=== PATIENT | male | born 1970 | race Caucasian/White ===

== ENCOUNTER → 2020-11-02 09:52 | Outpatient (CLI) | payer OTHER, SELFPAY ==
[2020-11-02 10:20] LABS: COVID19 -Nasal RAPID Negative (Negative)
== END ==
PROVIDERS: Visit Provider Physician Assistant
DX: R19.7 Diarrhea, unspecified (principal); R50.9 Fever, unspecified; R51.9 Headache, unspecified
CPT/HCPCS: 87635

== ENCOUNTER 2020-11-02 10:36 | Emergency (ER) | payer OTHER, SELFPAY ==
[2020-11-02] VITALS (15 sets, daily range): BP systolic 133–142; BP diastolic 77–80; PULSE 70–94; RESP 16–18; TEMP 37.7–37.9; O2SAT 93–99; BMI 26.5
--- NOTE | 2020-11-02 10:39 | ED_ITS ---
HPI - Fever General Chief Complaint: Nausea/Vomiting/Diarrhea Stated Complaint: fever,shivering,headache,abdominal pain,diarrhea Time Seen by Provider: 11/02/20 10:38 Source: patient Mode of arrival: Ambulatory Limitations: no limitations History of Present Illness HPI Narrative: 50-year-old male nonsmoker with noncontributory medical history presents from the walk-in clinic for evaluation of fever, chills, crampy abdominal pain and frequent loose stools occasionally with blood for the past 2- 3 days. [place] was [place] and not prophylaxed against malaria. He has got a mild headache and some dizziness when he stands up. He states his abdominal pain intensifies until he passes stool a which point it briefly grooves. He denies any runny nose or sore throat. He denies chest pain or shortness of breath. MD complaint: fever and weakness Onset (ago): day(s) Temperature Source: subjective Context: recent travel Associated symptoms: chills, rigors, myalgias, headache, abdominal pain, nausea and diarrhea Relieving factors: nothing Exacerbating factors: nothing Treatments prior to arrival fever: none Related Data Previous Rx's Medication Instructions Recorded phenylephrine 0.25 %-cocoa butter 1 suppositor [place] BID #24 each 06/29/18 88.44 % rectal suppository azithromycin 500 mg PO DAILY 3 Days tab 11/02/20 hyoscyamine sulfate 0.125 mg PO BID-QID PRN #20 tab 11/02/20 Allergies Allergy/AdvReac Type Severity Reaction Status Date / Time No Known Drug Allergies Allergy Verified 11/02/20 10:48 Review of Systems Constitutional Constitutional: Reports body ache(s), Reports chills, Reports fatigue, Reports fever(s), Denies frequent falls, Denies lethargy and Denies weakness Eyes Eyes: Denies change in vision, Denies eye discharge, Denies irritation and Denies loss of vision ENT Ears, Nose, Mouth, and Throat: Denies change in voice, Denies dizziness, Denies neck pain, Denies sore throat and Denies throat swelling Cardiovascular Cardiovascular: Denies chest pain, Denies irregular heart rhythm, Denies lightheadedness, Denies palpitations, Denies dyspnea, Denies dyspnea on exertion and Denies orthopnea Respiratory Respiratory: Denies cough, Denies dyspnea, Denies dyspnea on exertion and Denies wheezing Gastrointestinal Gastrointestinal: Reports abdominal pain, Denies change in bowel habits, Reports diarrhea, Reports nausea and Denies vomiting Musculoskeletal Musculoskeletal: Denies neck pain and Denies numbness Integumentary/Breasts Skin/Breast: Denies pruritus, Denies erythema, Denies rash and Denies wounds Neurologic Neurologic: Denies behavioral changes, Denies confusion, Denies dizziness, Denies frequent falls, Denies loss of vision, Denies numbness and Denies weakness Psychiatric Psychiatric: Denies anxiety, Denies behavioral changes, Denies confusion, Denies depression, Denies homicidal ideation and Denies suicidal ideation Endocrine Endocrine: Reports fatigue, Denies flushing and Denies palpitations Hematologic/Lymphatic Hematologic/Lymphatic: Denies easy bruising Allergic/Immunologic Allergic/Immunologic: Denies urticaria, Denies throat swelling and Denies wheezing Patient History Social History Smoking Status: Never smoker alcohol intake: never substance use type: does not use Smoking Status: Never smoker Exam Narrative Exam Narrative: GENERAL: [50] year old patient appears stated age. Well- nourished, well-developed patient, in mild distress. HEAD: Atraumatic. Normocephalic. EYES: Pupils equal round and reactive. Extraocular motions intact. No scleral icterus. No injection or drainage. ENT: Nose without bleeding, purulent drainage. Throat without erythema, tonsillar hypertrophy or exudate. Airway patent. NECK: Trachea midline. Non tender CARDIOVASCULAR: Regular rate and rhythm without murmurs, gallops, or rubs. RESPIRATORY: Clear to auscultation. Breath sounds equal bilaterally. No wheezes, rales, or rhonchi. GASTROINTESTINAL: Abdomen soft, non-tender, nondistended. EXTREMITIES: No edema or joint tenderness. BACK: Nontender without deformity or crepitance. No flank tenderness. NEURO: AOx3. SKIN: No rash or erythema of visible areas Initial Vital Signs Initial Vital Signs: Vital Signs Temperature 100.3 F H 11/02/20 10:49 Pulse Rate 90 11/02/20 10:49 Respiratory Rate 18 11/02/20 10:49 Blood Pressure 141/79 H 11/02/20 10:49 Pulse Oximetry 98 11/02/20 10:49 Course Course Course Narrative: improved after fluids. Very reassuring labs. NO obvious infectious source in stool, however, given timing and international travel we elected to give azithro. Return precautions given. Questions answered to his apparent satisfaction. Orders Ordered: Discontinued Medications Azithromycin (Azithromycin 250 Mg Tablet) 500 mg PO NOW ONE Stop: 11/02/20 16:20 Last Admin: 11/02/20 16:28 Dose: 500 mg Documented by: ARIAS Lactated Ringer's (Lactated Ringers) 1,000 mls @ 1,000 mls/hr IV BOLUS ONE Stop: 11/02/20 11:56 Last Infusion: 11/02/20 13:29 Dose: 0 mls/hr Documented by: Admin: 11/02/20 11:29 Dose: 1,000 mls/hr Documented by: ARIAS Lactated Ringer's (Lactated Ringers) 1,000 mls @ 1,000 mls/hr IV BOLUS ONE Stop: 11/02/20 15:03 Last Infusion: 11/02/20 15:00 Dose: 0 mls/hr Documented by: Admin: 11/02/20 14:06 Dose: 1,000 mls/hr Documented by: ARIAS Lactated Ringer's (Lactated Ringers) 1,000 mls @ 1,000 mls/hr IV BOLUS ONE Stop: 11/02/20 15:06 Last Admin: 11/02/20 15:08 Dose: Not Given Documented by: ARIAS Ketorolac Tromethamine (Ketorolac 60 Mg/2 Ml Vial) 15 mg IV NOW ONE Stop: 11/02/20 15:27 Last Admin: 11/02/20 15:46 Dose: 15 mg Documented by: ARIAS Vital Signs Vital signs: Vital Signs - 8 hr 11/02/20 10:49 11/02/20 11:14 11/02/20 11:15 Temperature 100.3 F H Pulse Rate 90 88 85 Respiratory Rate 18 Blood Pressure 141/79 H 133/77 Pulse Oximetry 98 99 98 11/02/20 11:30 11/02/20 12:00 11/02/20 12:30 Temperature Pulse Rate 86 90 87 Respiratory Rate Blood Pressure 136/77 Pulse Oximetry 96 96 95 11/02/20 13:00 11/02/20 13:38 11/02/20 14:00 Temperature Pulse Rate 88 91 H 87 Respiratory Rate 16 Blood Pressure 135/77 Pulse Oximetry 97 98 96 11/02/20 14:30 11/02/20 14:46 11/02/20 15:00 Temperature Pulse Rate 86 70 87 Respiratory Rate 16 Blood Pressure 135/77 Pulse Oximetry 96 98 97 11/02/20 15:30 11/02/20 15:50 Temperature Pulse Rate 94 H 90 Respiratory Rate 16 Blood Pressure 142/80 H Pulse Oximetry 95 96 MDM - Fever Lab Data Result diagrams: 11/02/20 11:04 11/02/20 11:04 Labs: Lab Results 11/02/20 11/02/20 11/02/20 Range/Units 11:04 11:04 11:04 WBC 6.7 (4.5-11.0) X10^3/uL RBC 4.94 (4.5-5.9) X10^6/uL Hgb 14.8 (13.5-17.5) g/dL Hct 43.5 (41-53) % MCV 88.2 (80-100) fL MCH 30.0 (26-34) PG MCHC 34.0 (30-36) % RDW 12.8 (11.6-14.8) % Plt Count 124 L (150-400) X10^3/uL Neut % (Auto) 82.3 H (50-75) % Lymph % (Auto) 8.9 L (25-40) % [place] % (Auto) 8.2 (3-14) % Eos % (Auto) 0.1 L (2-4) % Baso % (Auto) 0.5 (0-2) % Neut # (Auto) 5500 (1107-7207) /uL Lymph # (Auto) 600 L (5878-4428) /uL [place] # (Auto) 500 (0-900) /uL Eos # (Auto) 0 (0-450) /uL Baso # (Auto) 0 (0-100) /uL Sodium 135 L (137-145) mmol/L Potassium 3.9 (3.4-5.1) mmol/L Chloride 101 (98-107) mmol/L Carbon Dioxide 30 (22-32) mmol/L BUN 16 (9-20) mg/dL Creatinine 0.89 (0.66-1.25) mg/dL Estimated GFR > 60.0 (>60) mL/min BUN/Creatinine Ratio 18.0 (6-22) Glucose 100 (70-100) mg/dL Lactate 0.7 (0.7-2.1) mmol/L Calcium 8.9 (8.4-10.2) mg/dL Total Bilirubin 0.7 (0.2-1.3) mg/dL AST 34 (17-59) IU/L ALT 13 (<50) IU/L Alkaline Phosphatase 86 (38-126) U/L Total Protein 7.1 (6.3-8.2) g/dL Albumin 4.0 (3.5-5.0) g/dL Globulin 3.1 (1.7-4.1) g/dL Albumin/Globulin Ratio 1.3 (1.0-2.8) Stl C. cayetanensis PCR (Not Detect) Stool Rotavirus (PCR) (Not Detect) Stool Adenovirus (PCR) (Not Detect) Stool Astrovirus (PCR) (Not Detect) Stool Cryptosporidium PCR (Not Detect) Stl E.coli Shiga Tox PCR (Not Detect) St Sh/Enteroin Ecoli PCR (Not Detect) Stool E coli O157 PCR (Not Detect) Stl Enterotoxigenic E PCR (Not Detect) Stool EPEC (PCR) (Not Detect) Stl E. histolytica PCR (Not Detect) Stool Giardia Lamblia PCR (Not Detect) Stool Sapovirus (PCR) (Not Detect) Stl P. shigelloides PCR (Not Detect) St Y.enterocolitica PCR (Not Detect) Stool Vibrio (PCR) (Not Detect) Stl Vibrio cholerae PCR (Not Detect) Stl Enteroaggr Ecoli PCR (Not Detect) Stl Norovirus GI/GII PCR (Not Detect) Campylobacter (PCR) (Not Detect) C. difficile Tox (PCR) (Not Detect) Salmonella (PCR) (Not Detect) 11/02/20 Range/Units 13:30 WBC (4.5-11.0) X10^3/uL RBC (4.5-5.9) X10^6/uL Hgb (13.5-17.5) g/dL Hct (41-53) % MCV (80-100) fL MCH (26-34) PG MCHC (30-36) % RDW (11.6-14.8) % Plt Count (150-400) X10^3/uL Neut % (Auto) (50-75) % Lymph % (Auto) (25-40) % [place] % (Auto) (3-14) % Eos % (Auto) (2-4) % Baso % (Auto) (0-2) % Neut # (Auto) (3561-5216) /uL Lymph # (Auto) (8489-2944) /uL [place] # (Auto) (0-900) /uL Eos # (Auto) (0-450) /uL Baso # (Auto) (0-100) /uL Sodium (137-145) mmol/L Potassium (3.4-5.1) mmol/L Chloride (98-107) mmol/L Carbon Dioxide (22-32) mmol/L BUN (9-20) mg/dL Creatinine (0.66-1.25) mg/dL Estimated GFR (>60) mL/min BUN/Creatinine Ratio (6-22) Glucose (70-100) mg/dL Lactate (0.7-2.1) mmol/L Calcium (8.4-10.2) mg/dL Total Bilirubin (0.2-1.3) mg/dL AST (17-59) IU/L ALT (<50) IU/L Alkaline Phosphatase (38-126) U/L Total Protein (6.3-8.2) g/dL Albumin (3.5-5.0) g/dL Globulin (1.7-4.1) g/dL Albumin/Globulin Ratio (1.0-2.8) Stl C. cayetanensis PCR Not detected (Not Detect) Stool Rotavirus (PCR) Not detected (Not Detect) Stool Adenovirus (PCR) Not detected (Not Detect) Stool Astrovirus (PCR) Not detected (Not Detect) Stool Cryptosporidium PCR Not detected (Not Detect) Stl E.coli Shiga Tox PCR Not detected (Not Detect) St Sh/Enteroin Ecoli PCR Not detected (Not Detect) Stool E coli O157 PCR Not detected (Not Detect) Stl Enterotoxigenic E PCR Not detected (Not Detect) Stool EPEC (PCR) Not detected (Not Detect) Stl E. histolytica PCR Not detected (Not Detect) Stool Giardia Lamblia PCR Not detected (Not Detect) Stool Sapovirus (PCR) Not detected (Not Detect) Stl P. shigelloides PCR Not detected (Not Detect) St Y.enterocolitica PCR Not detected (Not Detect) Stool Vibrio (PCR) Not detected (Not Detect) Stl Vibrio cholerae PCR Not detected (Not Detect) Stl Enteroaggr Ecoli PCR Not detected (Not Detect) Stl Norovirus GI/GII PCR Not detected (Not Detect) Campylobacter (PCR) Not detected (Not Detect) C. difficile Tox (PCR) Not detected (Not Detect) Salmonella (PCR) Not detected (Not Detect) Urine Dip Bedside Urine Glucose Negative Bedside Urine Bilirubin - Negative Bedside Urine Ketone - Negative Urine Specific [place] 1.030 Bedside Urine Occult Blood +/- Bedside Urine pH 6.0 Bedside Urine Protein + 30 Bedside Urine Urobilinogen - Negative Bedside Urine Nitrite - Negative Bedside Urine Leukocytes - Negative Esterase Discharge Plan Departure Patient Disposition: Home Clinical Impression: Diarrhea, Dehydration, Diarrhea of presumed infectious origin Activity Restrictions/Additional Instructions: *You have been diagnosed with [fever, chills and diarrhea after international travel. Your labs and examination today of been very reassuring.] *What to do: *Take medications as directed *Follow up with your primary care provider in 2-3 days, call for an appointment. Let them know you were seen in the Emergency Department and that we ask that you be seen in follow up *Return to ER if you should have any new, worsening or concerning symptoms 1. Drink plenty of fluids with frequent small sips. 2. For the next 24 hours a clear liquid diet is advised. After that please employ a B.R.A.T. diet which would include bananas, rice, apples, toast and other mild food items Prescriptions: New hyoscyamine sulfate 0.125 mg tablet 0.125 mg PO BID-QID PRN (Reason: dyspepsia) Qty: 20 RF: 0 azithromycin 500 mg tablet 500 mg PO DAILY 3 Days RF: 0 No Action phenylephrine-cocoa butter [Preparation H(pe,cb)] 0.25-88.44 % suppository 1 suppositor [place] BID Qty: 24 RF: 0 Referrals: [facility] [Outside]
[2020-11-02] MEDS: LACTATED RINGERS 1,000 ML 1000 ML IV ×2 (11:29→14:06)
[2020-11-02 11:33] LABS: Add Manual Diff / Slide Review NO; Basophils Absolute Auto 0 /uL (0-100); Basophils Percent Auto 0.5 % (0-2); Eosinophils Absolute Auto 0 /uL (0-450); Eosinophils Percent Auto 0.1 % (2-4); Hematocrit 43.5 % (41-53); Hemoglobin 14.8 g/dL (13.5-17.5); Lymphocytes Absolute Auto 600 /uL (1100-4500); Lymphocytes Percent Auto 8.9 % (25-40); Mean Corpuscular Volume 88.2 fL (80-100); Monocytes Absolute Auto 500 /uL (0-900); Monocytes Percent Auto 8.2 % (3-14); Neutrophils Absolute Auto 5500 /uL (1500-7000); Neutrophils Percent Auto 82.3 % (50-75); Platelet Count 124 X10^3/uL (150-400); Red Blood Cell Count 4.94 X10^6/uL (4.5-5.9); Red Cell Distribution Width 12.8 % (11.6-14.8); White Blood Cell Count 6.7 X10^3/uL (4.5-11.0)
[2020-11-02 11:52] LABS: Alanine Aminotransferase 13 IU/L (<50); Albumin Globulin Ratio 1.3 (1.0-2.8); Alkaline Phosphatase 86 U/L (38-126); Aspartate Aminotransferase 34 IU/L (17-59); Bilirubin Total 0.7 mg/dL (0.2-1.3); Blood Urea Nitrogen 16 mg/dL (9-20); Calcium 8.9 mg/dL (8.4-10.2); Carbon Dioxide 30 mmol/L (22-32); Chloride 101 mmol/L (98-107); Estimated Glomerular Filt Rate > 60.0 mL/min (>60); Globulin 3.1 g/dL (1.7-4.1); Glucose 100 mg/dL (70-100); HEMOLYSIS < 15 (0-50); Lactate (Lactic Acid) 0.7 mmol/L (0.7-2.1); Potassium 3.9 mmol/L (3.4-5.1); Sodium 135 mmol/L (137-145); Total Protein 7.1 g/dL (6.3-8.2)
--- NOTE | 2020-11-02 13:02 | DI.RAD.S_ITS ---
PROCEDURE: XR ACUTE ABDOMEN SERIES INDICATIONS: Abdominal pain, fever, diarrhea TECHNIQUE: One view chest and two views of the abdomen were acquired. COMPARISON: None. FINDINGS: Surgical changes and devices: None. Chest: Lungs are clear. Heart size is normal. No pleural effusions. No pneumoperitoneum. Abdomen: Abundant bowel gas in colon and small bowel. Few air-fluid levels in pelvis. No suspicious calcifications. Visualized solid organ contours appear normal. Bones: No suspicious bony lesions. IMPRESSION: Nonspecific nonobstructive bowel gas pattern. Dictated by: Petra Hussein M.D. on 11/02/2020 at 13:33 Approved by: Petra Hussein M.D. on 11/02/2020 at 13:36
--- NOTE | 2020-11-02 14:47 | PC.NURSE ---
Pt given chicken broth. Pt ok to comsume clear fluids per Dr [place].
[2020-11-02 15:20] LABS: Adenovirus F 40/41 Not Detected (Not Detect); Astrovirus Not Detected (Not Detect); Clostridium difficile toxin AB Not Detected (Not Detect); Cryptosporidium Not Detected (Not Detect); Cyclospora cayetanensis Not Detected (Not Detect); Entamoeba histolytica Not Detected (Not Detect); Enteroaggregative E.coli Not Detected (Not Detect); Enteropathogenic E.coli Not Detected (Not Detect); Enterotoxigenic E.coli It/st Not Detected (Not Detect); Giardia lamblia Not Detected (Not Detect); Norovirus GI/GII Not Detected (Not Detect); Plesiomonsa shigelloides Not Detected (Not Detect); Rotavirus A Not Detected (Not Detect); Salmonella Not Detected (Not Detect); Sapovirus Not Detected (Not Detect); Shiga-like toxin-prod E.coli Not Detected (Not Detect); Shigella/Enteroinvasive E.coli Not Detected (Not Detect); Vibrio Not Detected (Not Detect); Vibrio cholerae Not Detected (Not Detect); Yersinia enterocolitica Not Detected (Not Detect)
[2020-11-02] MEDS: KETOROLAC 60 MG/2 ML VIAL 15 MG IV (15:46)
[2020-11-02] MEDS: AZITHROMYCIN 250 MG TABLET 500 MG PO (16:28)
[2020-11-04 13:37] LABS: Campylobacter Detected (Not Detect)
== END 2020-11-02 16:31 | disposition home or self-care (01) ==
PROVIDERS: Emergency Provider Emergency Medicine
DX: R19.7 Diarrhea, unspecified (principal); R50.9 Fever, unspecified; R51.9 Headache, unspecified; E86.0 Dehydration
CPT/HCPCS: 36415; 74022; 80053; 81003; 83605; 85025; 87040; 87207; 87507; 87635; 96361; 96374; 99283; 99284; J1885

== ENCOUNTER → 2021-11-13 10:32 | Outpatient (CLI) | payer OTHER, SELFPAY ==
[2021-11-13 11:55] LABS: COVID19 -Nasal RAPID Negative (Negative)
== END ==
PROVIDERS: Referring Provider Nurse Practitioner Family; Visit Provider Nurse Practitioner Family
DX: Z20.822 Contact with and (suspected) exposure to COVID-19 (principal); J02.9 Acute pharyngitis, unspecified
CPT/HCPCS: 87070; 87635

== ENCOUNTER → 2025-04-09 13:01 | Outpatient (CLI) | payer SELFPAY | LOC: LAB 13:02 | PROVIDERS: Visit Provider Chiropractor | DX: B35.9 Dermatophytosis, unspecified (principal) | CPT/HCPCS: 87070; 87205 ==